=== PATIENT | female | born 2000 | race African-American/Black ===

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

== ENCOUNTER 2018-09-28 11:25 | Emergency (ER) | payer OTHER ==
[~2018-09-28] VITALS: Ht 154.9 cm; Wt 61.0 kg
[2018-09-28 14:47] VITALS: BP 127/76
== END 2018-09-28 14:48 | disposition home or self-care (01) ==
LOC: ER 11:25
DX: J20.9 Acute bronchitis, unspecified (principal); M79.18 Myalgia, other site
CPT/HCPCS: 81025; 99283

== ENCOUNTER 2020-06-17 02:22 | Emergency (ER) | payer SELFPAY ==
[~2020-06-17] VITALS: Ht 162.6 cm; Wt 58.5 kg
[2020-06-17 03:03] VITALS: BP 115/77
[2020-06-17] MEDS ORDERED: HYDROCORTISONE 1% CREAM 30GM TOP ONE (03:15)
== END 2020-06-17 03:45 | disposition home or self-care (01) ==
LOC: ER 02:22
DX: L25.9 Unspecified contact dermatitis, unspecified cause (principal)
CPT/HCPCS: 99282

== ENCOUNTER 2020-09-29 01:44 | Emergency (ER) | payer SELFPAY ==
[~2020-09-29] VITALS: Ht 160 cm; Wt 59.0 kg
[2020-09-29] MEDS: KETOROLAC 60MG/2ML VIAL IM ONE ×2 (04:21→04:38)
[2020-09-29] MEDS ORDERED: NAPR-681 MT (04:41)
[2020-09-29] MEDS ORDERED: METH-653 MT (04:41)
[2020-09-29 04:43] VITALS: BP 131/74
== END 2020-09-29 05:03 | disposition home or self-care (01) ==
LOC: ER 01:44
DX: S39.012A Strain of muscle, fascia and tendon of lower back, initial encounter (principal); V49.9XXA Car occupant (driver) (passenger) injured in unspecified traffic accident, initial encounter; Y93.89 Activity, other specified; Y92.89 Other specified places as the place of occurrence of the external cause; Y99.8 Other external cause status
CPT/HCPCS: 96372; 99283; J1885